=== PATIENT | male | born 1970 | race Caucasian/White ===

== ENCOUNTER 2025-04-28 19:22 | Emergency (ER) | payer SELFPAY ==
[~2025-04-28] VITALS: Ht 172.7 cm; Wt 79.4 kg
[2025-04-28 19:25] VITALS: TEMP 37.1; O2SAT 99
[2025-04-28 20:48] VITALS: BP 174/112; PULSE 124; RESP 13; O2SAT 98
[2025-04-28 20:58] LABS: BASOPHILS % 0.9 % (0.0-2.0); EOSINOPHILS % 0.8 % (0.0-5.0); HEMATOCRIT. 47.5 % (42.0-52.0); HEMOGLOBIN. 16.0 g/dL (14.0-18.0); LYMPHOCYTES % 17.5 % (20.0-50.0); MEAN PLATELET VOLUME 10.6 fl (7.4-10.4); MONOCYTES % 7.7 % (2.0-8.0); NEUTROPHILS % 73.1 % (40.0-76.0); PLATELET 240 x1000/uL (130-400); RED BLOOD CELL COUNT 5.04 mill/uL (4.7-6.1); RED CELL DISTRIBUTION WIDTH 13.7 % (11.6-14.6)
[2025-04-28 21:11] LABS: CREATININE 1.1 mg/dL (0.6-1.3)
[2025-04-28 21:12] LABS: TROPONIN I HIGH SENSITIVITY 9 ng/L (3.0-53); UREA NITROGEN BLOOD 6 mg/dL (9-23)
[2025-04-28 21:13] LABS: ASPARTATE AMINOTRANSFERASE 30 IU/L (<34)
[2025-04-28 21:14] LABS: BILIRUBIN DIRECT 0.2 mg/dL (<=3.0); BILIRUBIN TOTAL 0.8 mg/dL (0.1-1.0); PROTEIN TOTAL 7.8 g/dL (6.0-8.3)
[2025-04-28 21:25] LABS: ETHANOL BLOOD 300 mg/dL (<10)
[2025-04-28 21:44] LABS: BG DEOXYHEMOGLOBIN 4.1 % (0.0-5.0)
[2025-04-28] MEDS: KCL 20MEQ/100ML PREMIX 100 ML IV SCH (21:49)
[2025-04-28] MEDS: SODIUM CHLORIDE 0.9% 1,000 ML IV ONE ×2 (21:50→21:51)
[2025-04-28 23:13] LABS: TROPONIN I HIGH SENSITIVITY 9 ng/L (3.0-53)
[2025-05-02] MEDS ORDERED: METF-414 PO (10:08)
[2025-05-02] MEDS ORDERED: LANTUSUD SUBCUT (10:08)
[2025-05-02] MEDS ORDERED: LOSA50TA41 PO (10:08)
== END 2025-04-28 23:07 | disposition left against medical advice (07) ==
LOC: EDBD → ER 19:22 → EDBEDREQ 22:29 → EDBEDREQSVC 22:29 → EDBEDREQTM 22:29 → ENRESERV 22:57 → ER 23:07
DX: E11.65 Type 2 diabetes mellitus with hyperglycemia (principal); I10 Essential (primary) hypertension
CPT/HCPCS: 80076; 80048; 82010; 80320; 83735; 83930; 85025; 84484; 36415; 71045; 82375; 82803; 96365; 99284; J3480; J7030; Z7610; A4606; G0480

== ENCOUNTER 2025-04-30 18:53 | Inpatient (IN) | payer SELFPAY ==
[~2025-04-30] VITALS: Ht 177.8 cm; Wt 79.8 kg
[2025-04-30 18:58] VITALS: O2SAT 97
[2025-04-30 20:00] LABS: BASOPHILS % 0.6 % (0.0-2.0); EOSINOPHILS % 0.7 % (0.0-5.0); HEMATOCRIT. 44.1 % (42.0-52.0); HEMOGLOBIN. 15.1 g/dL (14.0-18.0); LYMPHOCYTES % 14.9 % (20.0-50.0); MEAN PLATELET VOLUME 10.0 fl (7.4-10.4); MONOCYTES % 8.6 % (2.0-8.0); NEUTROPHILS % 75.2 % (40.0-76.0); PLATELET 213 x1000/uL (130-400); RED BLOOD CELL COUNT 4.73 mill/uL (4.7-6.1); RED CELL DISTRIBUTION WIDTH 13.6 % (11.6-14.6)
[2025-04-30 20:12] LABS: CREATININE 1.0 mg/dL (0.6-1.3); UREA NITROGEN BLOOD 8 mg/dL (9-23)
[2025-04-30] MEDS: INSULIN REGULAR (HUMULIN R) 1000UNITS/10ML VIAL SUBCUT ONE (22:33)
[2025-04-30] MEDS: SODIUM CHLORIDE 0.9% 500 ML IV ONE (22:33)
[2025-04-30 23:34] LABS: TROPONIN I HIGH SENSITIVITY 6 ng/L (3.0-53)
[2025-05-01] MEDS: NIFEDIPINE XL 60MG TAB PO NR (03:58)
[2025-05-01] MEDS: CLONIDINE 0.1MG TABLET PO PRN (04:32)
[2025-05-01 04:49] VITALS: BP 167/88; PULSE 80; RESP 18; TEMP 36.4; O2SAT 95
[2025-05-01 05:51] VITALS: BP 167/88; PULSE 80; RESP 18; TEMP 36.4736
[2025-05-01 08:00] VITALS: BP 153/82; PULSE 84; RESP 20; TEMP 36.4; O2SAT 100
[2025-05-01] MEDS ORDERED: DEXTROSE 50% WATER 50ML SYRINGE IV PRN ×2 (08:00→08:30)
[2025-05-01] MEDS ORDERED: INSULIN LISPRO 100 UNITS/ML SUBCUT SCH ×3 (08:00→12:30)
[2025-05-01] MEDS: NIFEDIPINE XL 60MG TAB PO SCH (09:04)
[2025-05-01] MEDS: INSULIN GLARGINE 100 UNITS/ML SUBCUT SCH ×2 (09:18→21:31)
[2025-05-01] MEDS ORDERED: INSULIN GLARGINE 100 UNITS/ML SUBCUT SCH (10:00)
[2025-05-01] MEDS ORDERED: ACETAMINOPHEN 325MG TABLET PO PRN ×2 (10:45)
[2025-05-01] MEDS ORDERED: ONDANSETRON HCL 4MG/2ML INJ IV PRN (10:45)
[2025-05-01 12:00] VITALS: BP 151/81; PULSE 88; RESP 20; TEMP 36.8; O2SAT 100
[2025-05-01] MEDS ORDERED: BLOOD SUGAR DIAGNOSTIC STRIP TEST SCH (12:00)
[2025-05-01] MEDS: BLOOD SUGAR DIAGNOSTIC STRIP TEST SCH (12:15)
[2025-05-01] MEDS: INSULIN LISPRO 100 UNITS/ML SUBCUT SCH (12:30)
[2025-05-01 12:59] LABS: HEPATITIS C AB NON REACTIVE (Neg) (Negative)
[2025-05-01] MEDS: METFORMIN HCL 500MG TABLET PO SCH (13:27)
[2025-05-01] MEDS: INSULIN LISPRO 100 UNITS/ML SUBCUT NR (13:38)
[2025-05-01] MEDS: SODIUM CHLORIDE 0.9% 3ML FLUSH IVF SCH (13:54)
[2025-05-01 16:00] VITALS: BP 129/81; PULSE 96; RESP 20; TEMP 36.6; O2SAT 100
[2025-05-01] MEDS: GLIMEPIRIDE 2MG TABLET PO SCH (16:09)
[2025-05-01 20:00] VITALS: BP 140/82; PULSE 108; RESP 18; TEMP 36.7; O2SAT 100
[2025-05-01] MEDS ORDERED: ZOLPIDEM TARTRATE 5MG TABLET PO PRN (21:00)
[2025-05-02] VITALS: BP 136/80; PULSE 89; RESP 18; TEMP 36.7; O2SAT 100
[2025-05-02 04:00] VITALS: BP 140/82; PULSE 85; RESP 18; TEMP 36.7; O2SAT 100
[2025-05-02 08:00] VITALS: BP 138/84; PULSE 80; RESP 19; TEMP 36.7; O2SAT 96
[2025-05-02] MEDS: LOSARTAN 50 MG TABLET PO SCH (09:40)
[2025-05-02] MEDS ORDERED: METF-414 PO (10:08)
[2025-05-02] MEDS ORDERED: LOSA50TA41 PO (10:08)
[2025-05-02] MEDS ORDERED: LANTUSUD SUBCUT (10:08)
[2025-05-02 12:00] VITALS: BP 142/94; PULSE 89; RESP 20; TEMP 36.8; O2SAT 97
[2025-05-02 16:00] VITALS: BP 141/94; PULSE 89; RESP 20; TEMP 36.4; O2SAT 98
== END 2025-05-02 18:10 | disposition home or self-care (01) | DRG 420 ==
LOC: ER 18:53 → EDBEDREQTM 05-01 03:09 → EDBEDREQ 05-01 03:09 → 8EST 05-01 05:07
PROVIDERS: ADMIT Internal Medicine; ATTEND Internal Medicine
DX: E11.00 Type 2 diabetes mellitus with hyperosmolarity without nonketotic hyperglycemic-hyperosmolar coma (NKHHC) (principal); I10 Essential (primary) hypertension; Z79.4 Long term (current) use of insulin; Z79.84 Long term (current) use of oral hypoglycemic drugs; Z79.899 Other long term (current) drug therapy
CPT/HCPCS: 36415; 80048; 82962; 83036; 84484; 85025; 86705; 87340; 99285; J1815; J7040